=== PATIENT | female | born 1950 | race Caucasian/White ===

== ENCOUNTER 2019-03-22 20:40 | Inpatient (IN) | payer SELFPAY ==
[~2019-03-22] VITALS: Ht 152.4 cm; Wt 44.5 kg
[2019-03-22 20:47] VITALS: BP_SYST 243
--- NOTE | 2019-03-22 20:47 | NUR ---
Placed in room 3 . Placed on shelter monitor, blood pressure machine and pulse oximeter. To gown for exam. Side rails up.
--- NOTE | 2019-03-22 20:52 | NUR ---
Pt was brought in by family from home c/o high blood pressure that was around 220's systolically. Pt only complains of headache. Pt deneis SOB, chest pain, blurred vision, N/V. Pt states she came from the [facility] in January and used to take blood pressure medications, amlodipine. Pt was given a BP medication earlier today. No relief. No other injuries/complaints per patient or noted.
[2019-03-22] MEDS ORDERED: AMLO5TAB4 PO (21:05)
--- NOTE | 2019-03-22 21:11 | NUR ---
ER Dr. Grubbs at bedside examining patient.
[2019-03-22] MEDS ORDERED: hydrALAZINE HCL 20 MG/ML VIAL IVP ONE (21:30)
[2019-03-22] MEDS ORDERED: NACL 0.9% 1,000 ML IV ONE (21:30)
--- NOTE | 2019-03-22 21:46 | NUR ---
Medication was given, pt tolerated well. No adverse reaction, will continue to monitor.
[2019-03-22 21:49] LABS: BASOPHILS # (AUTO) 0.1 K/uL (0.0-0.2); BASOPHILS % (AUTO) 1.2 % (0.0-2.0); EOSINOPHILS # (AUTO) 0.2 K/uL (0.0-0.4); EOSINOPHILS % (AUTO) 3.1 % (0.0-4.0); HEMATOCRIT 43.6 % (36-48); HEMOGLOBIN 13.9 g/dL (12.0-16.0); LYMPHOCYTES # (AUTO) 2.6 K/uL (1.0-5.5); LYMPHOCYTES % (AUTO) 33.4 % (20.5-51.5); MEAN CORPUSCULAR HEMOGLOBIN 22 pg (27-31); MEAN CORPUSCULAR HGB CONC 32 % (32-36); MEAN CORPUSCULAR VOLUME 69 fL (79.0-98.0); MONOCYTES # (AUTO) 0.7 K/uL (0.0-1.0); MONOCYTES % (AUTO) 8.8 % (1.7-9.3); NEUTROPHILS # (AUTO) 4.2 K/uL (1.8-7.7); NEUTROPHILS % (AUTO) 53.5 % (40.0-70.0); PLATELET COUNT (AUTO) 281 K/uL (130-430); RED BLOOD CELL COUNT(AUTO) 6.29 MIL/uL (4.2-6.2); RED CELL DISTRIBUTION WIDTH 15.5 % (9.0-15.0); WHITE BLOOD COUNT (AUTO) 7.8 K/uL (4.8-10.8)
--- NOTE | 2019-03-22 21:50 | NUR ---
Xray at bedside, pt tolerated well.
[2019-03-22 21:54] LABS: CALCIUM 8.9 mg/dL (8.4-11.0); CREATININE 0.72 mg/dL (0.55-1.30); POTASSIUM 3.7 mmol/L (3.5-5.1)
[2019-03-22 22:03] LABS: ALBUMIN 3.8 g/dL (3.4-4.8); TOTAL BILIRUBIN 0.2 mg/dL (0.0-1.0)
[2019-03-22] MEDS ORDERED: METOPROLOL TARTRATE 5 MG/5 ML VIAL IVP ONE (22:15)
[2019-03-22] MEDS ORDERED: ASPIRIN 81 MG TAB.CHEW PO ONE (22:15)
--- NOTE | 2019-03-22 22:39 | NUR ---
Patient will be admitted to care of Dr. Lozano. Admitted to Telemetry unit. Will go to room 109. Belongings list completed. Summary report printed. Report will be given at bedside.
--- NOTE | 2019-03-22 22:40 | NUR ---
Transfer to Telemetry via ACLS protocol. Licensed nurse present. IV present no signs or symptoms of infiltration.
--- NOTE | 2019-03-22 22:48 | NUR ---
ADMIT NOTE Received pt from ER to the floor with a diagnosis of hypertension. Admission process initiated. patient oriented to pain management, safety and call light-teach back done.
[2019-03-22 22:58] VITALS: BP_SYST 163
[2019-03-22] MEDS: NACL 0.9% 1,000 ML IV SCH (23:16)
--- NOTE | 2019-03-22 23:16 | NUR ---
Initial note: Received report from ER nurse ROB Ryan. Patient is resting in bed, no distress. Family present at bedside. Alert and oriented x4, speaks Tagalog primarily, but able to communicate in Gabonese. IV to right AC #18 is patent and benign, receiving NS at 20 ML/HR as ordered. BP reassessed at this time, 157/90 with HR 94. No complaints of headaches, pain, dizziness, or shortness of breath. Call light with patient. Bed alarm refused despite education. Will continue to monitor.
[2019-03-23 01:25] VITALS: BP_SYST 159
--- NOTE | 2019-03-23 01:34 | NUR ---
CONSULT: CONSULT CALLED FOR DR. JAIN I SPOKE WITH SHAWNA LOW REASON FOR CONSULT" HYPERTENSION REQUESTING CONSULT: DR. GUY [employer]PER[employer]OR [employer] PHONE NUMBER: [phone]
--- NOTE | 2019-03-23 02:34 | NUR ---
Rounds: Patient is sleeping. Family member at bedside. Patient's breathing is even and unlabored on room air. IV fluids infusing as ordered. Call light with patient, will continue to monitor.
--- NOTE | 2019-03-23 05:47 | NUR ---
Closing note: Patient is resting in bed, no distress. No complaints of pain. Family member at bedside. Respirations even and unlabored on room air. IV site remains patent and benign. All needs met. Will endorse to dayshift RN.
--- NOTE | 2019-03-23 07:13 | NUR ---
Opening Note patient resting in bed, awake and alert, at bedside, no signs of distress, breathing unlabored and symmetrical, educated patient on use of call light for assistance, verbalized understanding, call light and bedside table left within reach, will continue to monitor
[2019-03-23] MEDS ORDERED: ONDANSETRON HCL 4 MG/2 ML VIAL IVP PRN (07:45)
[2019-03-23] MEDS ORDERED: HYDROcodone/ACETAMIN 5-325 MG TAB (NORCO/ VICODIN) PO PRN (07:45)
[2019-03-23] MEDS ORDERED: POTASSIUM CHLORIDE 20 MEQ TAB.PRT.SR PO PRN (07:45)
[2019-03-23] MEDS ORDERED: MORPHINE 4 MG/ML INJ. SYRINGE IVP PRN (07:45)
[2019-03-23] MEDS ORDERED: MUPIROCIN 2% TOPICAL OINTMENT 22 GM NS PRN (07:45)
[2019-03-23] MEDS ORDERED: NITROGLYCERIN 0.4 MG TAB.SUBL SL PRN (07:45)
[2019-03-23] MEDS ORDERED: MAGNESIUM SULFATE 50 ML IV PRN (07:45)
[2019-03-23] MEDS ORDERED: DOCUSATE SODIUM 100 MG CAPSULE PO PRN (07:45)
[2019-03-23] MEDS ORDERED: ACETAMINOPHEN 325 MG TABLET PO PRN (07:45)
[2019-03-23] MEDS ORDERED: HEPARIN 25,000 UNITS/D5W 250ML 250 ML IV PRN (07:45)
[2019-03-23] MEDS: ATORVASTATIN 20 MG TABLET PO SCH (08:08)
[2019-03-23] MEDS: amLODIPine BESYLATE 10 MG TABLET PO SCH (08:10)
[2019-03-23] MEDS: ASPIRIN 81 MG TAB.CHEW PO SCH (08:11)
--- NOTE | 2019-03-23 08:17 | NUR ---
Medication Administration/Dr. Munoz Rounded educated patient regarding meds, verbalized understanding, tolerated medications well by mouth, Dr. Munoz stated will change dose of metropolol, will implement, stated patient will not need heparin, will clarify with Dr. Lozano, no other needs at this time, educated patient on use of call light for assistance, verbalized understanding, call light and bedside table left within reach, will continue to monitor
[2019-03-23 08:19] VITALS: BP_SYST 189
[2019-03-23] MEDS ORDERED: METOPROLOL TARTRATE 25 MG TABLET PO SCH ×2 (09:00)
[2019-03-23] MEDS ORDERED: METOPROLOL TARTRATE 25 MG TABLET PO ONE (09:30)
--- NOTE | 2019-03-23 09:53 | NUR ---
Blood Pressure Reassessed still elevated, administered second half of lopressor, educated patient and family regatding med, verbalized understanding, tolerated well, denies chest pain at this time, no other needs, educated patient on use of call light for assistance, verbalized understanding, call light and bedside table left within reach, will continue to monitor
--- NOTE | 2019-03-23 11:18 | NUR ---
Costume Mistress Note: VAMP MAKER received a call from RN that patient wanted to see SS. VAMP MAKER met with patient and daughter regarding application for [employer]. Informed family that Arutr from [employer] has been informed of the self-pay status; and someone from [employer] should be seeing them for the application. SS will remain available when needed.
[2019-03-23 11:50] LABS: INR 1.1 (0.8-1.2); PROTHROMBIN TIME 10.8 SECS (9.5-12.5)
[2019-03-23 12:02] VITALS: BP_SYST 136
[2019-03-23] MEDS ORDERED: HEPARIN SODIUM,PORCINE 5000 UNITS/ML VIAL IVP ONE (12:30)
--- NOTE | 2019-03-23 12:51 | NUR ---
Paged Dr. Lozano/Spoke with Dr. Marie called to clarify order for heparin because Dr. Lozano was waiting on results from head CT, Dr. Marie is boiler control room operator at this time, informed him of results of head CT and to see if MD wanted to initiate heparin drip, Dr. Marie stated to clarify with Dr. Munoz if still wants to start heparin drip, will await call back
--- NOTE | 2019-03-23 14:13 | NUR ---
Spoke with Dr. Munoz to clarify heparin orders per Dr. Marie orders, Dr. Munoz stated to hold heparin order at this time
[2019-03-23 16:02] VITALS: BP_SYST 151
--- NOTE | 2019-03-23 16:28 | NUR ---
Informed Dr. Munoz About Troponin verbalized understanding, aware about blood pressure trends, MD stated to keep current orders of BP meds, troponin tomorrow AM and EKG in the AM, also stated to hold heparin at this time, will inform patient and family
--- NOTE | 2019-03-23 18:55 | NUR ---
Closing Note patient resting in bed, awake and alert, family at bedside, denies pain or SOB, breathing unlabored, IV site patent, safety precautions remain in place, will endorse to manager night nurse
[2019-03-23 19:51] VITALS: BP_SYST 154
--- NOTE | 2019-03-23 19:51 | NUR ---
Opening notes Pt AAOx4, no acute distress noted. Pt denies any pain, dizziness or sob. IV fluid infusing as ordered R.AC no s/s infiltration noted. Encouraged pt to call for assistance OOB, pt verb understanding. Family at bedside and updated with plan of care. Call light within easy reach. Safety measures in place. To monitor.
--- NOTE | 2019-03-23 20:45 | NUR ---
Rounds Pt alert, awake, no s/s distress noted. Call light within reach. Family at bedside. To monitor.
[2019-03-23] MEDS: METOPROLOL TARTRATE 25 MG TABLET PO SCH (20:46)
[2019-03-23] MEDS: NACL 0.9% 1,000 ML IV SCH (22:45)
[2019-03-23 23:45] VITALS: BP_SYST 132
--- NOTE | 2019-03-24 00:57 | NUR ---
Bathroom Pt assisted to the bathroom, no c/o dizziness. VSS. IVF infusing as ordered R. AC no s/s infiltration noted. Call light within reach. To monitor.
--- NOTE | 2019-03-24 02:14 | NUR ---
Rounds Pt asleep. No s/s distress noted. Call light within easy reach. To monitor.
--- NOTE | 2019-03-24 05:00 | NUR ---
Closing notes Pt awake, alert, no s/s distress noted. Pt denies any pain at this time. IVF infusing as ordered R. AC 18G, no s/s infiltration. Call light within reach. All needs met throughout the night. To endorse to AM nurse.
[2019-03-24 06:50] LABS: BASOPHILS # (AUTO) 0.1 K/uL (0.0-0.2); BASOPHILS % (AUTO) 1.4 % (0.0-2.0); EOSINOPHILS # (AUTO) 0.3 K/uL (0.0-0.4); EOSINOPHILS % (AUTO) 3.9 % (0.0-4.0); HEMATOCRIT 41.4 % (36-48); HEMOGLOBIN 12.9 g/dL (12.0-16.0); LYMPHOCYTES % (AUTO) 28.8 % (20.5-51.5); MEAN CORPUSCULAR HEMOGLOBIN 22 pg (27-31); MEAN CORPUSCULAR HGB CONC 31 % (32-36); MEAN CORPUSCULAR VOLUME 70 fL (79.0-98.0); MONOCYTES # (AUTO) 0.7 K/uL (0.0-1.0); MONOCYTES % (AUTO) 10.9 % (1.7-9.3); NEUTROPHILS # (AUTO) 3.7 K/uL (1.8-7.7); PLATELET COUNT (AUTO) 280 K/uL (130-430); RED BLOOD CELL COUNT(AUTO) 5.91 MIL/uL (4.2-6.2); WHITE BLOOD COUNT (AUTO) 6.8 K/uL (4.8-10.8)
[2019-03-24 07:13] LABS: CALCIUM 8.7 mg/dL (8.4-11.0); CREATININE 0.75 mg/dL (0.55-1.30)
[2019-03-24 07:43] VITALS: BP_SYST 126
--- NOTE | 2019-03-24 08:00 | NUR ---
Note Pt sitting up in bed eating her breakfast. Pt's daughter in law at bedside. No Chest pain/discomfort or SOB/resp distress noted at this time. Tele unit attached and intact. IV in right AC intact and patent infusing IVF's well. No needs noted at this time. Call light within reach.
[2019-03-24] MEDS: amLODIPine BESYLATE 10 MG TABLET PO SCH (09:02)
[2019-03-24] MEDS: ASPIRIN 81 MG TAB.CHEW PO SCH (09:03)
[2019-03-24] MEDS: METOPROLOL TARTRATE 25 MG TABLET PO SCH (09:03)
[2019-03-24] MEDS: ATORVASTATIN 20 MG TABLET PO SCH (09:03)
--- NOTE | 2019-03-24 10:24 | NUR ---
Nutrition Update Josh Scale 18 noted. Pt admitted for HTN. Diet: 2 gm Na BMI: 19.1 kg/m2 RD to follow per nutrition care standards.
--- NOTE | 2019-03-24 11:00 | NUR ---
Note Dr Marie at bedside answering questions/concerns at this time. Pt was given verbal discharge instructions and prescription at this time. Dr Munoz also assessed pt this morning around 08am per pt. Pt's tele unit was dc'd and returned to night monitor. IVF's were saline locked per MD's instructions at this time. Pt's at bedside and daughter in law has left the bedside. No needs noted. Call light within reach.
[2019-03-24] MEDS ORDERED: METO50TA7 PO (11:30)
[2019-03-24] MEDS ORDERED: NOR10 PO (11:31)
[2019-03-24] MEDS ORDERED: ASPI-1153 PO (11:31)
[2019-03-24] MEDS ORDERED: LIP40 PO (11:32)
[2019-03-24 12:00] VITALS: BP_SYST 154
[2019-03-24 13:21] VITALS: BP_SYST 122
--- NOTE | 2019-03-24 13:45 | NUR ---
Note Pt dressed in street clothes and packed all her belongings. Pt and her family checked side table and drawers for belongings. Pt's IV in right AC was dc'd. site benign, no swelling/redness noted at this time. Pt and her daughter in law were given the discharge instructions and prescription. Questions/concerns were answered at this time. No SOB/resp distress or pain/discomfort or dizziness/weakness noted at this time. Call light within reach. No needs noted at this time. Pt was checked q1' and PRN all shift for needs and care.
--- NOTE | 2019-03-24 13:50 | NUR ---
Note Pt off the floor via wheelchair to private car with all her belongings and discharge paperwork/prescription. Pt stable at this time.
--- NOTE | 2019-03-31 14:31 | NUR ---
Discharge Follow Up Phone Call ADMINISTRATIVE LIAISON phoned patient, , and left a voicemail message on 03/26/19. ADMINISTRATIVE LIAISON phoned today and spoke with patient's son. He stated that they have filled patient's prescriptions and patient is taking her medications. Patient has a follow up appointment on April 06. ADMINISTRATIVE LIAISON stated they needed to be sure patient saw a PCP and brought in patient's new medications as patient has only 30 days worth of RX. Son stated patient will live here now, not the [facility]. He asked about paperwork received from [employer] for a [employer] application. ADMINISTRATIVE LIAISON assured him that [employer] works with the hospital to assist with applications. He will follow up. No other questions or concerns.
== END 2019-03-24 13:45 | disposition home or self-care (01) | DRG 282 ==
LOC: SED 20:40 → STU 22:31
PROVIDERS: ADMIT Family Medicine; ATTEND Family Medicine
DX: I16.0 Hypertensive urgency (principal); I21.A1 Myocardial infarction type 2; Z80.0 Family history of malignant neoplasm of digestive organs; Z91.14 Patient's other noncompliance with medication regimen
CPT/HCPCS: 36415; 70450-TC; 71045; 80048; 80053; 80061; 83036; 83735-TC; 84484; 85025; 85610-TC; 87081; 93005; 93306; 96361; 96374; 96375; 99285; G0378; J0360; J3490; J7030

== ENCOUNTER 2024-07-15 19:35 | Emergency (ER) | payer MEDICAID ==
[~2024-07-15] VITALS: Ht 152.4 cm; Wt 45.4 kg
[~2024-07-15 19:35] MED LIST: ASPI-1393 PO; LIP40 PO; METO50TA7 PO; NOR10 PO
[2024-07-15 19:51] VITALS: BP_SYST 188; PULSE 68; RESP 16; TEMP 98.2; O2SAT 98
== END 2024-07-15 20:53 | disposition left against medical advice (07) ==
LOC: SED 19:35
DX: I10 Essential (primary) hypertension (principal); R07.89 Other chest pain; R42 Dizziness and giddiness; R53.1 Weakness; R11.0 Nausea; Z53.21 Procedure and treatment not carried out due to patient leaving prior to being seen by health care provider